=== PATIENT | female | born 1970 ===

== ENCOUNTER 2017-09-12 20:33 | Emergency (ER) | payer SELFPAY ==
[2017-09-12 21:13] VITALS: BP 136/89; PULSE 75; RESP 18; TEMP 98.1; O2SAT 99
--- NOTE | 2017-09-12 22:25 | ED PDOC ---
HPI: General Adult Time Seen by Provider: 09/12/17 21:50 Chief Complaint (Nursing): Headache History Per: Patient Additional Complaint(s): Pt. states for the past month she's had constant R sided neck pain radiating up to her head. States she took Aleve at 1600 today without relief. Denies weakness , head injury, trauma, fever, sore throat, rash, sudden onset of headache. Of note, neck pain is worse with movement of R shoulder and twisting of neck. Past Medical History Reviewed: Historical Data, Nursing Documentation, Vital Signs Vital Signs: Last Vital Signs Temp 98.1 F 09/12/17 21:09 Pulse 75 09/12/17 21:09 Resp 18 09/12/17 21:09 BP 136/89 09/12/17 21:09 Pulse Ox 99 09/12/17 21:09 - Family History Family History: States: No Known Family Hx - Home Medications Home Medications: Ambulatory Orders Medication Instructions Recorded Cyclobenzaprine [Cyclobenzaprine 10 mg PO Q8 PRN #10 tab 09/12/17 HCl] Naproxen [Naprosyn] 500 mg PO BID PRN #10 tab 09/12/17 - Allergies Allergies/Adverse Reactions: Allergies Allergy/AdvReac Type Severity Reaction Status Date / Time No Known Allergies Allergy Verified 09/12/17 21:13 Review of Systems ROS Statement: Except As Marked, All Systems Reviewed And Found Negative Musculoskeletal: Positive for: Neck Pain Neurological: Positive for: Headache Physical Exam - Physical Exam Appears: Positive for: Well, Non-toxic, No Acute Distress Head Exam: Positive for: ATRAUMATIC, NORMAL INSPECTION, NORMOCEPHALIC Skin: Positive for: Normal Color, Warm. Negative for: Rash Eye Exam: Positive for: Normal appearance ENT: Positive for: Normal ENT Inspection. Negative for: Pharyngeal Erythema, Tonsillar Exudate, Tonsillar Swelling Neck: Positive for: Supple, Decreased ROM, Limited ROM (secondary to pain), Pain On Movement Of Neck Cardiovascular/Chest: Positive for: Regular Rate, Rhythm Respiratory: Positive for: Normal Breath Sounds. Negative for: Respiratory Distress Back: Positive for: Normal Inspection, Muscle Spasm (R sided trapezius muscle spasm with tenderness). 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 On re-evaluation, pt. reports good relief of headache and neck pain. Disposition - Clinical Impression Clinical Impression: Cervical radiculopathy - Patient ED Disposition Is Patient to be Admitted: No - Disposition Referrals: [facility] [Outside] Disposition: Routine/Home Disposition Time: 22:28 Condition: IMPROVED Additional Instructions: Follow up with [facility] for further evaluation. Return to ED immediately if symptoms worsen. Prescriptions: Cyclobenzaprine [Cyclobenzaprine HCl] 10 mg PO Q8 PRN #10 tab PRN Reason: Muscle Spasm Naproxen [Naprosyn] 500 mg PO BID PRN #10 tab PRN Reason: Pain Instructions: Generalized Neck Pain (DC) Forms: [employer] (Albanian) Print Language: [place]
--- NOTE | 2017-09-13 08:51 | RAD ---
PROCEDURE: Cervical Spine Radiographs. HISTORY: Pain. COMPARISON: None. FINDINGS: BONES: Reversal of normal cervical lordosis. 2 mm posterior subluxation of C5 on C6. No fracture. Anterior osteophytic changes. Dens Intact. DISC SPACES: Multilevel narrowing, worst at at C5-6 and C6-7. SOFT TISSUES: Normal. No prevertebral soft tissue swelling. OTHER FINDINGS: None. IMPRESSION: No acute fracture. Multilevel degenerative changes. 2 mm posterior subluxation of C5 on C6.
== END 2017-09-12 23:07 | disposition home or self-care (01) ==
LOC: H.ER 20:33
DX: M54.12 Radiculopathy, cervical region (principal)
CPT/HCPCS: 72040; 81025; 96372; 99285; J1885

== ENCOUNTER 2017-10-07 08:35 | Emergency (ER) | payer MEDICAID ==
[2017-10-07 08:40] VITALS: BMI 27.7
[2017-10-07 08:42] VITALS: RESP 16
[2017-10-07] MEDS ORDERED: Alum-Mag Hydrox-Simethicone Susp (30 mL) PO ONE (09:39)
[2017-10-07] MEDS ORDERED: Alum-Mag Hydrox-Simethicone Susp (30 mL) ONE (09:52)
[2017-10-07] MEDS ORDERED: Famotidine 20mg/50ml 20 MG/50 ML BAG IVPB ONE (09:52)
[2017-10-07 10:10] LABS: BASO # 0.1 K/uL (0.0-0.2); BASO % 0.6 % (0.0-2.0); EOS # 0.2 K/uL (0.0-0.7); EOS % 2.4 % (0.0-4.0); HEMOGLOBIN 11.7 g/dL (12.0-16.0); MEAN CELL VOLUME 95.6 fl (81.0-99.0); MEAN CORPUSCULAR HEMOGLOBIN 32.3 pg (27.0-31.0); MEAN CORPUSCULAR HGB CONC 33.8 g/dL (33.0-37.0); MEAN PLATELET VOLUME 8.4 fl (7.2-11.7); MONO # 1.2 K/uL (0.0-0.8); MONO % 13.8 % (0.0-10.0); NEUT # 4.4 K/uL (1.8-7.0); NEUT % 49.2 % (50.0-75.0); NRBC % 0.1 % (0.0-0.0); RBC 3.64 Mil/uL (3.80-5.20); RED CELL DISTRIBUTION WIDTH 13.8 % (11.5-14.5); WHITE BLOOD COUNT 8.9 K/uL (4.8-10.8)
[2017-10-07 10:22] LABS: ALBUMIN 3.4 g/dL (3.5-5.0); ALT/SGPT 57 U/L (9-52); AST/SGOT 44 U/L (14-36); BLOOD UREA NITROGEN 14 mg/dl (7-17); CALCIUM 8.7 mg/dL (8.4-10.2); GFR AFRICAN-AMERICAN > 60; GFR NON-AFRICAN AMERICAN > 60; LIPASE 50 U/L (23-300)
--- NOTE | 2017-10-07 11:47 | RAD ---
PROCEDURE: Left Knee Radiographs. HISTORY: Pain. COMPARISON: None. FINDINGS: BONES: No acute fracture. JOINTS: Unremarkable. JOINT EFFUSION: None. OTHER FINDINGS: None. IMPRESSION: No demonstrated fracture or dislocation.
--- NOTE | 2017-10-07 12:49 | ED PDOC ---
Lower Extremity Pain/Injury Time Seen by Provider: 10/07/17 09:18 Chief Complaint (Nursing): Lower Extremity Problem/Injury Chief Complaint (Provider): Left Knee Pain History Per: Patient History/Exam Limitations: no limitations Onset/Duration Of Symptoms: Days Current Symptoms Are (Timing): Still Present Additional Complaint(s): 47 y/o female with a history of gastritis and arthritis present to the ED for chronic left knee pain. Patient felt her knee was in more pain than usual today prompting her visit to the ED. She takes Relafen for the pain with some relief. Denies any vomiting, fever, CP, and has no other complaints. Of note, patient has chronic epigastric pain. PMD: None provided Past Medical History Reviewed: Historical Data, Nursing Documentation, Vital Signs Vital Signs: Last Vital Signs Temp 98.4 F 10/07/17 08:40 Pulse 78 10/07/17 08:40 Resp 16 10/07/17 08:40 BP 122/81 10/07/17 08:40 Pulse Ox 98 10/07/17 08:40 - Medical History PMH: Arthritis, Gastritis - Surgical History Surgical History: - Family History Family History: States: No Known Family Hx - Social History Current smoker - smoking cessation education provided: No Ex-Smoker (has not smoked in the last 12 months): No Alcohol: None Drugs: Denies - Home Medications Home Medications: Ambulatory Orders Medication Instructions Recorded Cyclobenzaprine [Cyclobenzaprine 10 mg PO Q8 PRN #10 tab 09/12/17 HCl] Naproxen [Naprosyn] 500 mg PO BID PRN #10 tab 10/07/17 Omeprazole 20 mg PO DAILY #30 capsule. 10/07/17 - Allergies Allergies/Adverse Reactions: Allergies Allergy/AdvReac Type Severity Reaction Status Date / Time No Known Allergies Allergy Verified 09/12/17 21:13 Review of Systems ROS Statement: Except As Marked, All Systems Reviewed And Found Negative Constitutional: Negative for: Fever Cardiovascular: Negative for: Chest Pain Gastrointestinal: Negative for: Vomiting Musculoskeletal: Positive for: Leg Pain (left knee pain) Physical Exam - Reviewed Nursing Documentation Reviewed: Yes Vital Signs Reviewed: Yes - Physical Exam Appears: Positive for: Well, Non-toxic, No Acute Distress Head Exam: Positive for: ATRAUMATIC, NORMAL INSPECTION, NORMOCEPHALIC Skin: Positive for: Normal Color, Warm, Dry Eye Exam: Positive for: EOMI, Normal appearance, PERRL ENT: Positive for: Normal ENT Inspection Neck: Positive for: Normal, Painless ROM, Supple Cardiovascular/Chest: Positive for: Regular Rate, Rhythm. Negative for: Murmur Respiratory: Positive for: Normal Breath Sounds. Negative for: Respiratory Distress Gastrointestinal/Abdominal: Positive for: Soft, Tenderness (epigastric) Back: Positive for: Normal Inspection. Negative for: L CVA Tenderness, R CVA Tenderness, Vertebral Tenderness Extremity: Positive for: Swelling (mild to left knee around joint). Negative for: Normal ROM (poor left ROM), Pedal Edema, Deformity, Other (no erythema) Neurologic/Psych: Positive for: Alert, Oriented (x3) - Laboratory Results Result Diagrams: 10/07/17 10:07 10/07/17 10:07 - ECG O2 Sat by Pulse Oximetry: 98 (RA) Pulse Ox Interpretation: Normal - Progress Re-evaluation Time: 13:00 Condition: Re-examined, Improved Medical Decision Making Medical Decision Making: Time: 8:40 Impression: Left knee pain and epigastric pain Differential Diagnosis: r/o gastritis, cholecystitis, and pancreatitis Second Differential Diagnosis: arthritis Initial Plan: * Maalox Plus 30 ml * Pepcid 20 mg IVP * Toradol 30 mg IVP * Lidocaine 15 ml PO Scribe Attestation: Documented by Lena Tavera acting as a scribe for Arpan Carpio MD. Scribe Attestation: All medical record entries made by the Scribe were at my direction and personally dictated by me. I have reviewed the chart and agree that the record accurately reflects my personal performance of the history, physical exam, medical decision making, and the department course for this patient. I have also personally directed, reviewed, and agree with the discharge instructions and disposition. Disposition - Clinical Impression Clinical Impression: Gastritis, Knee pain - Patient ED Disposition Is Patient to be Admitted: No Doctor Will See Patient In The: Office Counseled Patient/Family Regarding: Studies Performed, Diagnosis, Need For Followup - Disposition Referrals: [facility] [Outside] Disposition: Routine/Home Disposition Time: 13:00 Condition: GOOD Additional Instructions: Take your medications as instructed. Follow up with your PCP in 2-3 days. Prescriptions: Naproxen [Naprosyn] 500 mg PO BID PRN #10 tab PRN Reason: Pain Omeprazole 20 mg PO DAILY #30 capsule. Instructions: Chronic Knee Pain, Gastritis (DC) Print Language: YEMENI
[2017-10-07 13:29] VITALS: BP 127/87; PULSE 66; TEMP 98.2
[2017-10-09 12:48] VITALS: O2SAT 98
== END 2017-10-07 13:30 | disposition home or self-care (01) ==
LOC: H.ER 08:35
DX: K29.70 Gastritis, unspecified, without bleeding (principal); M25.562 Pain in left knee; Z87.891 Personal history of nicotine dependence
CPT/HCPCS: 73562; 80053; 81025; 83690; 85025; 96374; 96375; 99285; J1885